=== PATIENT | male | born 1990 | race Caucasian/White ===

== ENCOUNTER 2016-07-29 00:19 | Emergency (ER) | payer OTHER ==
[~2016-07-29] VITALS: Ht 180.3 cm; Wt 93.4 kg
[~2016-07-29 00:19] MED LIST: AZIT250T PO; CYCL10TA9 PO; FLUT9.9S NS
[2016-07-29 01:08] VITALS: BP 149/96
== END 2016-07-29 01:08 | disposition left against medical advice (07) ==
LOC: EDUNIT# 00:19 → ER 00:22
DX: R06.02 Shortness of breath (principal); Z53.21 Procedure and treatment not carried out due to patient leaving prior to being seen by health care provider
CPT/HCPCS: 99282